=== PATIENT | female | born 1930 | race Caucasian/White ===

== ENCOUNTER 2018-05-13 07:51 | Inpatient (IN) | payer OTHER ==
[2018-05-13] VITALS (16 sets, daily range): BP systolic 118–136; BP diastolic 46–63
--- NOTE | ~2018-05-13 | EKG ---
[place], [place] ELECTROCARDIOGRAM REPORT NAME: ALAN MAYA UNIT #: [id number] ROOM: 506 DOCTOR: AMAURY DRAFT REPORT BIRTHDATE: [birth year] [facility] Test Date: 2018-05-13 Test Time: 08:21:46 Pat Name: ALAN MAYA Department: Room: 506 Gender: F High Risk Ob: Ines Argueta : 1930 Requested By: ERIBERTO GARCIA Order Number: [id number] Reading MD: Kalin Roblero MD Measurements Intervals [place] Rate: 104 P: 112 SC: 135 QRS: 55 QRSD: 90 T: 70 QT: 370 QTc: 487 Interpretive Statements Sinus tachycardia with irregular rate Consider left ventricular hypertrophy Borderline prolonged QT interval No previous ECG available for comparison Electronically Signed On 05-13-2018 15:57:18 PST by Kalin Roblero MD CM:EKGRPT:ELECTROCARDIOGRAM REPORT [id number] ERIBERTO POTTER DRAFT REPORT ERIBERTO GARCIA DO
--- NOTE | ~2018-05-13 | PR ---
[place], [place] PROGRESS NOTE [id number] UN[facility] #: [id number] ROOM: 506 DOCTOR: BRIAN HERNANDEZ MD BIRTHDATE: [birth year] DOS: 05/15/2018 CARDIOLOGY PROGRESS NOTE SUBJECTIVE: The patient was seen today, 05/15/2018, at her bedside with her son in attendance. She tells me that she is "getting along." She is breathing easily and denies any chest pain. We did do an echocardiogram yesterday, which showed normal left ventricular size, wall motion and systolic function with an ejection fraction of 65%. She had stage 2 diastolic dysfunction, mild aortic sclerosis, but no stenosis, mild mitral insufficiency and mild tricuspid insufficiency with mild pulmonary hypertension. PHYSICAL EXAMINATION: VITAL SIGNS: Today, her pulse is 79 and regular, blood pressure is 146/55. She is afebrile. NECK: Supple. She has no jugular distention. Carotids are full. LUNGS: Respirations are unlabored. Her chest is clear to auscultation and percussion. HEART: Has a regular rhythm with a soft S4 gallop, but no S3 or murmur. The PMI is not displaced. ABDOMEN: Soft and normally active. EXTREMITIES: Showed trace edema bilaterally. IMPRESSION: 1. Severe sepsis, probably of urinary origin. 2. Mild elevation in troponin without chest pain or diagnostic ST changes on her electrocardiogram. This most likely represents a type 2 myocardial injury. 3. Normal wall motion and systolic function on echocardiography. 4. Diastolic dysfunction. 5. Severe anemia on admission, most likely due to gastrointestinal blood loss. 6. Recent diagnosis of vaginal cancer with apparent urinary obstruction requiring bilateral nephrostomies. 7. Right-sided nephrostomy tube was not draining appropriately and had to be repositioned this admission. 8. Acute on chronic renal failure. PLAN: The patient appears to be comfortable and no further cardiac testing is indicated nor would it change her ultimate prognosis. We will remain available if needed, but at this point, we will sign off. I thank the hospitalist physicians for asking our advice regarding her care. [place], [place] PROGRESS NOTE NAME: ALAN MAYA [facility]ATED [facility]IN [facility] #: [id number] UNIT #: [id number] ROOM: 506 DOCTOR: BRIAN HERNANDEZ MD BIRTHDATE: [birth year] BRIAN HERNANDEZ MD CM:PNTRANS [id number] BRIAN HERNANDEZ MD 05/16/18 0023 interface
--- NOTE | ~2018-05-13 | CON ---
[place], [place] REPORT OF CONSULTATION NAME: ALAN MAYA [facility] #: [id number] UNIT #: [id number] ROOM: 506 DOCTOR: BRIAN HERNANDEZ MD BIRTHDATE: [birth year] DOS: 05/14/2018 CARDIOLOGY CONSULTATION REASON FOR CONSULTATION: The patient was seen today at her bedside today for evaluation of an elevated troponin level. HISTORY OF PRESENT ILLNESS: She is an 88-year-old woman who denies any previous history of heart disease. She did have a stroke in 03/2018. She was hospitalized at the [facility], where she was found to have bladder cancer, vaginal cancer and cervical cancer in 04/2017. She was transferred to the [facility], where I believe bilateral nephrostomy tubes were inserted. She was to have further workup including a PET scan and then an Oncology referral to determine further management strategies. About one week ago, she began having decreased oral intake with multiple episodes of dark diarrhea. She denied nausea, vomiting, fevers, chills, chest pain or dyspnea. She did, however, become extremely weak and therefore was brought to the Emergency Room. On arrival, her laboratory studies showed hemoglobin of 5.8 with a white count of 29,000, platelet count was 337,000. Electrolytes showed sodium of 124, BUN of 58 and a creatinine of 3.48. She was felt to have severe sepsis and severe blood loss anemia. She was treated with transfusions and her hemoglobin has increased to 10.0. Her white count is still severely elevated at 26,200. She states that she is feeling a little better and is no longer dyspneic, but still feels tired. She continues to deny any chest pain. Troponin levels since admission have been mildly elevated. The initial troponin was 0.048. Subsequent troponin levels were 0.098, 0.106 and 0.105. PAST MEDICAL HISTORY: Includes: 1. Essential hypertension. 2. History of stroke on 04/11/2018, details not currently available. 3. 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 Details of her current workup are not yet available to me. 4. History of bilateral nephrostomies. MEDICATIONS: Prior to admission; acetaminophen q. 4 hours p.r.n., amlodipine 10 mg daily, aspirin 81 mg daily, citalopram 20 mg daily, clopidogrel 75 mg daily, levothyroxine 75 mcg daily, metoprolol 12.5 mg b.i.d., omeprazole 20 mg t.i.d. at a.c. and simvastatin 80 mg at bedtime. ALLERGIES: The patient lists allergies to CIPROFLOXACIN. REVIEW OF SYSTEMS: The patient denies diplopia or loss of vision. She is generally weak, but denies focal weakness at this time. She does say that she has a hard time forming words and remembering words since her stroke, but still has clear speech. She denies nausea or vomiting. She denies fevers or chills. She denies hemoptysis or hematemesis. She has had dark diarrhea recently. She has no urine output and her urine is obtained via the nephrostomies. She denies chest pain or palpitations. She denies shortness of breath currently, although she was short of breath prior to admission. She denies skin rashes. She has [place], [place] REPORT OF CONSULTATION NAME: ALAN MAYA UNIT #: [id number] ROOM: [facility] DOCTOR: BRIAN HERNANDEZ MD BIRTHDATE: [birth year] had peripheral edema. She denies heat or cold intolerance, but states that she always feels cold. Remainder of the review of systems is negative except as noted above. FAMILY HISTORY: Both parents at age 78 from heart attacks. SOCIAL HISTORY: The patient has never smoked and does not consume alcohol. She does not use illegal drugs. PHYSICAL EXAMINATION: GENERAL: The patient is an elderly white female who appears to be awake, alert and oriented. VITAL SIGNS: Pulse is 86 and regular, blood pressure is 128/52. She had a fever of 100.6 overnight, but currently she is afebrile. She weighs 54.5 kg and has a body mass index of 23.5. HEENT: Normocephalic and atraumatic. Extraocular muscles are intact. Sclerae are clear. Pupils equal, round and react to light. The oral mucosa is moist. Tongue is midline. NECK: Her neck is supple. She has no jugular distention. Carotids are full. There are no bruits. She has no neck or supraclavicular masses and no thyromegaly. LUNGS: Respirations are unlabored. Her chest is clear to auscultation and percussion. She has no chest wall tenderness. CARDIOVASCULAR: Her heart has a regular rhythm with a soft S4 gallop, but no S3 or murmur. The PMI is not displaced. There is no precordial heave, lift or thrill. ABDOMEN: Soft and normally active. The patient does have bilateral nephrostomy tubes in place. EXTREMITIES: Showed 1+ edema bilaterally. Peripheral pulses are palpable in the feet. LABORATORY DATA: The electrocardiogram showed sinus rhythm with frequent PACs and multifocal atrial tachycardia. There is nonspecific ST and T-wave change present, but no acute ST elevations or depressions. Chest x-ray shows a normal cardiac silhouette without infiltrates. A CT of the abdomen shows that left-sided nephrostomy tube is in proper position and drains the kidney appropriately. The right-sided nephrostomy tube appears to be curled within the peripheral portion of the inferior calyx or possibly external to the calyx, this is associated with [id number] right-sided hydronephrosis. Hemoglobin is 10.0, white count 26,200, platelet count 327,000. Sodium 126, potassium 4.1, chloride 95, CO2 of 19, BUN 61, creatinine 3.20. Troponins are as noted above. The most recent troponin was 0.105. IMPRESSIONS: 1. Severe sepsis, probably of urinary origin. 2. Mild elevation in troponin without chest pain or diagnostic ST changes on electrocardiogram. Most likely, this represents a type 2 myocardial injury (demand ischemia). 3. Severe anemia on admission, most likely due to gastrointestinal blood [place], [place] REPORT OF CONSULTATION NAME: ALAN MAYA UNIT #: [id number] ROOM: 506 DOCTOR: BRIAN HERNANDEZ MD BIRTHDATE: [birth year] losses. 4. Recent diagnosis of cervical and vaginal cancer with apparent urinary obstruction requiring bilateral nephrostomies. 5. Right-sided nephrostomy tube likely is not draining appropriately per x-ray of the abdomen. 6. Acute on chronic renal failure. PLAN: From a Cardiac standpoint, we will be getting an echocardiogram to assess left ventricular function. I think it would be very important to obtain records from [facility] and especially from [facility] to determine what the patient's options were when they saw her. The patient is very committed to the idea that she be comfort care only. She asked that we convey to her family that those are her stated and tightly held wishes and that she did not want to have any invasive therapies. From a Cardiac standpoint, she truly is not a candidate for any advanced cardiac diagnostic or therapeutic measures given her severe anemia, apparent blood loss, and progressive cancer. I would recommend that we keep her hemoglobin greater than 9 and further recommendations may occur after I see her echocardiogram, but likely we will simply treat her conservatively and supportively. I thank the hospitalist physicians for asking our advice regarding her care. BRIAN HENRANDEZ MD CM:CONSTR:REPORT OF CONSULTATION [id number] 05/14/18 1014 interface
[~2018-05-13 07:51] MED LIST: CITALOPRAM20 MG PO; ENALAPRIL MALE2.5 MG PO; LOPRESSOR25 MG PO; LOVASTATIN20 MG PO; NORVASC10 MG PO; SYNTHROID,LEVO75 MCG PO; ZANTAC150 MG PO
[2018-05-13 08:23] LABS: MEAN CELL VOLUME 83.5 fl (81.0-99.0); MEAN CORPUSCULAR HGB CONC 34.7 g/dl (33.0-37.0); MEAN PLATELET VOLUME 8.8 fl (9.6-12.3); PLATELET COUNT AUTOMATED 337 10*3/uL (130-400); RED CELL DISTRI WIDTH 15.5 % (0-14.5)
[2018-05-13 08:37] LABS: CREATININE 3.48 mg/dL (0.55-1.02); POTASSIUM 4.2 mmol/L (3.5-5.1); TOTAL PROTEIN 6.7 gm/dL (6.4-8.2)
[2018-05-13 08:41] LABS: TROPONIN I 0.048 ng/ml (<0.045)
[2018-05-13 08:47] LABS: PLATELET SUFFICIENCY NORMAL (NORMAL); POLYCHROMASIA SLIGHT; TOTAL CELLS COUNTED 100 #CELLS
[2018-05-13 08:48] LABS: BURR CELLS FEW
[2018-05-13 08:50] LABS: HEMATOCRIT 16.7 % (37.0-47.0); HEMOGLOBIN 5.8 g/dl (12.0-16.0)
[2018-05-13 09:00] LABS: BILIRUBIN NEGATIVE (NEGATIVE); BLOOD 3+ (NEGATIVE); CLARITY CLOUDY (CLEAR); COLOR YELLOW (YELLOW); GLUCOSE NEGATIVE (NEGATIVE); KETONE NEGATIVE (NEGATIVE); LEUKO ESTERASE 2+ (NEGATIVE); NITRITE NEGATIVE (NEGATIVE); PH 5.5 (5.0-9.0); SPECIFIC GRAVITY <= 1.005 (1.005-1.030); UROBILINOGEN 0.2 E.U./dl (0.2-1.0)
[2018-05-13 09:25] LABS: BACTERIA 3+; MUCOUS 1+; WBC TNTC wbc/hpf (0-5)
--- NOTE | 2018-05-13 11:40 | NUR ---
A 88, admitted to 5E, under the services of KAMERON Crawford DO with a diagnosis of UTI, ANEMIA, RENAL INSUFFICIENCY, HYPONATREMIA. Chief complaint is WEAKNESS. Patient arrived via stretcher from ER. Initial assessment completed. Vital signs taken and recorded. KAMERON CRAWFORD DO notified of admission to the unit. Orders received. See assessment for past medical history, medications and allergies. Patient and/or family oriented to unit. [address] visitation policy reviewed. Clothing/patient valuable form completed. MOHAN CEJA
--- NOTE | 2018-05-13 12:44 | NUR ---
SPOKE TO DR BRADFORD REGARDING FLUID BOLUS WHILE RECEIVING BLOOD. PER DR BRADFORD IT IS OK TO ASMINISTER AND HE WILL PUT IN ORDER FOR IV LASIX
--- NOTE | 2018-05-13 13:19 | NUR ---
DR. BRADFORD WAS NOTIFIED OF CRITICAL LAB OF TROPONIN LEVEL OF 0.098.
--- NOTE | 2018-05-13 15:50 | NUR ---
SPOKE TO DR BRADFORD AND INFORMED HIM OF PTS CRITICAL TROPONIN. ALSO INFORMED HIM THAT PTS BLOOD TRANSFUSION IS COMPLETE. ORDER FOR H/H [id number] RECEIVED.
[2018-05-13] MEDS ORDERED: CLOPIDOGREL75 MG PO (17:31)
[2018-05-13] MEDS ORDERED: ASPIRIN ADULT L81 M1 PO (17:31)
[2018-05-13] MEDS ORDERED: SIMVASTATIN40 MG PO (17:32)
[2018-05-13] MEDS ORDERED: ACETAMINOPHEN325 M3 PO (17:34)
[2018-05-13] MEDS ORDERED: OMEPRAZOLE D/R20 MG PO (17:39)
--- NOTE | 2018-05-13 17:42 | NUR ---
CALLED PTS DAUGHTER TO VERIFY HOME MEDICATIONS. MED LIST NOW UP TO DATE. DR BRADFORD NOTIFIED
[2018-05-13 18:18] LABS: HEMOGLOBIN 7.7 g/dl (12.0-16.0)
--- NOTE | 2018-05-13 18:27 | NUR ---
CALLED ANSWERING SERVICE REGARDING NEW PT CONSULT FOR DR HERNANDEZ. DR BONILLA TAKING CALL. LEFT MESSAGE. WAITING CANDLEMAKER BACK
--- NOTE | 2018-05-13 18:38 | NUR ---
DR BONILLA CALLED REGARDING INFORMATION FOR NEW PT CONSULT. HE STATED HE WILL SEE PT IN THE MORNING. NO NEW ORDERS
--- NOTE | 2018-05-13 19:42 | NUR ---
CALLED TO FLOOR TO INSPECT NEPHROSTOMY TUBE THAT IS LEAKING. STATES HE WILL SEE PATIENT.
--- NOTE | 2018-05-13 19:46 | NUR ---
HERE TO SEE PATIENT. INSTRUCTED TO FLUSH TUBING OF NEPHROSTOMY BAG TO ENSURE THERE IS NO SEDIMENT BLOCKING/PREVENTING IT FROM DRAINING. DRESSING TO NEPHROSTOMY TUBE CHANGED. TUBING TAPED UP TO ENSURE KINKING. WILL MONITOR. SECOND UNIT OF BLOOD INFUSING.
--- NOTE | 2018-05-13 21:35 | NUR ---
NOTIFIED OF R NEPHROSTOMY TUBE STILL LEAKING AFTER FLUSHING BAG TUBING AND REDRESSING THE SITE. NEW ORDERS TO FOLLOW FOR CT ABDOMEN/PELVIS WITHOUT CONTRAST.
--- NOTE | 2018-05-13 21:55 | NUR ---
PATIENT CLEANED UP. DRESSINGS TO BILATERAL NEPHROSTOMY TUBES CHANGED. RIGHT TUBE DRESSING IS SOILED AGAIN. CT CALLED TO CLARIFY DR'S WANTING ORAL CONTRAST. PER , NO ORAL CONTRAST NEEDED.
--- NOTE | 2018-05-13 22:28 | NUR ---
PATIENT RETURNED TO FLOOR FROM CT SCAN.
[2018-05-13 23:57] LABS: HEMATOCRIT 24.8 % (37.0-47.0); HEMOGLOBIN 8.8 g/dl (12.0-16.0)
[2018-05-14] VITALS (12 sets, daily range): BP systolic 105–141; BP diastolic 41–67
--- NOTE | 2018-05-14 02:31 | NUR ---
NOTIFIED OF CT RESULTS. CAME TO FLOOR TO SEE PATIENT TO DISCUSS WISHES ON TRANSFER TO ANOTHER FACILITY TO REPLACE R NEPHROSTOMY TUBE. PATIENT STATES SHE WANTS TO TALK TO HER DAUGHTER IN THE MORNING. OFFERED TO MAKE A PHONE CALL TONIGHT TO TALK TO DAUGHTER. PATIENT STATES SHE DOES NOT WANT TO WAKE HER DAUGHTER. WILL MAKE PHONE CALL TO DAUGHTER.
--- NOTE | 2018-05-14 04:22 | NUR ---
CALLED REGARDING PATIENT'S HEMORRHOIDS AND HER REQUEST FOR CREAM. NEW ORDERS TO FOLLOW.
--- NOTE | 2018-05-14 05:15 | NUR ---
PATIENT REQUESTING TO BE LEFT TO SLEEP AT THIS TIME. PATIENT TOOK PILLS PER ORDER, BUT DOES NOT WANT DRESSING TO R NEPHROSTOMY TUBE CHANGED AT THIS TIME.
--- NOTE | 2018-05-14 06:32 | NUR ---
DAUGHTER DERRICK CALLED AT THIS TIME AND UPDATED ON PLAN OF CARE. PATIENT STATES SHE WANTS TO STAY HERE AND DOES NOT WANT TO BE TRANSFERRED TO [facility] OR ANY OTHER HOSPITAL. STATES SHE WANTS TO BE A DNR AND TO STAY HERE. DAUGHTER DOES WANT PATIENT TO HAVE THIS TAKEN CARE OF. STATES SHE WILL BE IN TODAY AND REQUESTING A DOCTOR TALK TO BOTH OF THEM REGARDING OPTIONS. PATIENT AND DAUGHTER SPOKE AND IN AGREEANCE ON WAITING TO DECIDE UNTIL OPTIONS ARE DISCUSSED.
[2018-05-14 06:40] LABS: MEAN CELL VOLUME 83.6 fl (81.0-99.0); MEAN CORPUSCULAR HGB 29.9 pg (27.0-31.0); MEAN CORPUSCULAR HGB CONC 35.7 g/dl (33.0-37.0); MEAN PLATELET VOLUME 9.2 fl (9.6-12.3); PLATELET COUNT AUTOMATED 327 10*3/uL (130-400); RED BLOOD COUNT 3.35 10*6/uL (4.10-5.10); RED CELL DISTRI WIDTH 15.3 % (0-14.5); WHITE BLOOD COUNT 26.2 10*3/uL (4.8-10.8)
[2018-05-14 06:58] LABS: CREATININE 3.2 mg/dL (0.55-1.02); PHOSPHOROUS 4.4 mg/dL (2.5-4.9); POTASSIUM 4.1 mmol/L (3.5-5.1)
[2018-05-14 07:05] LABS: PLATELET SUFFICIENCY NORMAL (NORMAL); SCHISTOCYTES FEW; TOTAL CELLS COUNTED 100 #CELLS
[2018-05-14 07:06] LABS: THYROID STIM HORMONE (HS) 2.85 uIU/ml (0.358-4.75)
--- NOTE | 2018-05-14 08:00 | NUR ---
PT'S DAUGHTER HERE AND WOULD LIKE TO SPEAK WITH PT'S DOCTOR R/T POSSIBLE TRANSFER DUE TO PT'S RIGHT NEPHROSTOMY TUBE NEEDING REPLACED. MED. STUDENT IN WITH PT AND I REQUESTED IF THE MED. STUDENT COULD PLEASE NOTIFY DR REBOLLEDO.
--- NOTE | 2018-05-14 10:58 | NUR ---
PT TO HAVE NEPHROSTOMY TUBE REPLACED BY INTERVENTIONAL RADIOLOGIST TODAY. PT AND PT'S FAMILY NOTIFIED. ALSO NOTIFIED THEM OF NPO STATUS UNTIL PROCEDURE COMPLETED. LAYA, INSPECTOR RECEIVING, HERE TO SPEAK WITH PT R/T HOSPICE.
--- NOTE | 2018-05-14 11:18 | NUR ---
In to see patient, family at bedside. Family with questions regarding hospice, usp and DNR codes. Patient does not have medicaid so she cannot go to a usp facility for hospice; family would like patient to have PT and OT and be referred to [facility] for usp at this time.
--- NOTE | 2018-05-14 11:42 | NUR ---
Associate Data Scientist in to talk to patient. Patient states lives at HOME with ALONE. There are 3 steps in the home. Physician: CARMELA Pharmacy: [facility] health services: [facility] Patient's level of ADLs: MODERATE ASSIST Patient has working utilities: YES DME: NONE Follow-up physician's appointment after d/c: WILL BE MADE BY HOSPITALIST NURSE DIRECTOR Does patient want to access PORTAL?: NO Discharge plan PT LIVES ALONE AT HOME WITH FAMILY LIVING NEARBY AND STAYING WITH PT. PT ALSO HAS OV. FAMILY IS THINKING HOSPICE VS SNF PLACEMENT. [facility] HOSP[facility] MEETING WITH FAMILY TODAY AT 1 PM. WILL CONTINUE TO FOLLOW.. DANIA MURRAY
--- NOTE | 2018-05-14 11:47 | NUR ---
PT TO SURGERY VIA BED.
--- NOTE | 2018-05-14 12:18 | NUR ---
Contacted [facility] and faxed referral, will require PT/OT evals when patient is appropriate to participate and a precert.
--- NOTE | 2018-05-14 14:02 | NUR ---
PT C/O PAIN "ALL OVER" PT STATES I AM IN MORE PAIN NOW THAN I HAVE EVER BEEN IN." WHEN PT INFORMED OF ROYCE SRIVASTAVA ORDERED SHE STATED THAT ROYCE WILL NOT TOUCH THIS. I UPDATED DR BRADFORD AND HE STATED HE WILL ORDER SOMETHING FOR HER. PT'S FAMILY AT BEDSIDE.
--- NOTE | 2018-05-14 14:20 | NUR ---
MEDICATED PT PER PRN ORDER WITH MORPHINE FOR C/O PAIN "ALL OVER" THAT RATES 10/10 ON PAIN SCALE.
--- NOTE | 2018-05-14 14:28 | NUR ---
PT C/O NAUSEA. MEDICATED PT PER PRN ORDER WITH ZOFRAN.
--- NOTE | 2018-05-14 14:29 | NUR ---
PT REFUSING TO TURN SO THAT RN MAY CHECK NEPHROSTOMY SITE.
--- NOTE | 2018-05-14 14:51 | NUR ---
Kat from [facility] in to see patient and family. she answered all of their questions regarding hospice at a skilled facility VS hospice at home. Patient and daughter still in agreement to [facility] until they can apply for medcaid. Will follow.
--- NOTE | 2018-05-14 15:00 | NUR ---
PT STATES NO RELIEF OF PAIN WITH EARLIER MORPHINE. WILL NOTIFY DR BRADFORD.
--- NOTE | 2018-05-14 15:08 | NUR ---
DR BRADFORD IN TO SEE PT. 2MG IV MORPHINE GIVEN PER ORDER.
--- NOTE | 2018-05-14 15:43 | NUR ---
Hospice consult this date. Sana Guaman OTR/l
--- NOTE | 2018-05-14 16:38 | NUR ---
Hospice consult entered. Plan at this time to follow up at later date. Eun Mancilla, PT
--- NOTE | 2018-05-14 17:40 | NUR ---
PATIENT IS STATING SHE IS EXPERIENCING BAQCK PAIN AT SURGICAL SITE. PRN DILAUDID ADMINISTERED. PATIENT IS REFUSING TURNING AND CHANGING UNTIL PAIN MEDICATIONS ARE EFFECTIVE.
--- NOTE | 2018-05-14 19:21 | NUR ---
ASSUMED CARE OF PATIENT AT THIS TIME. PT IS SLEEPING IN BED, EASILY AROUSABLE. PT STATES EARLIER DILAUDID HELPED TO RELIEVE PAIN. [place] JAMIL AT BEDSIDE. WILL MONITOR. PATIENT DOES NOT WANT TO TURN AT THIS TIME FOR RN TO CHECK SITE. PT REQUESTING TO BE LEFT TO REST. WILL RESPECT PATIENT'S WISHES AND CONTINUE TO MONITOR. CALL LIGHT IN REACH.
--- NOTE | 2018-05-14 20:58 | NUR ---
PATIENT CLEANED UP/NEW BRIEF APPLIED AT THIS TIME. SITE OF R NEPHROSTOMY TUBE CHECKED. NO S/S OF BLEEDING/DRAINAGE NOTED. 300 CCs OF BLOOD-TINGED URINE NOTED IN NEPHROSTOMY BAG. PATIENT IS C/O PAIN IN R SIDE 11/30. PO NORCO ADMINSITERED PER ORDER. BED LEFT LOCKED IN LOW POSITION, BED ALARM INTACT. CALL LIGHT LEFT IN REACH.
[2018-05-15] VITALS: BP 124/50
--- NOTE | 2018-05-15 00:34 | NUR ---
PATIENT RESTING IN BED. STATES EARLIER MEDICATION WAS EFFECTIVE AND DENIES PAIN OR NEED OF ANY ADDITIONAL MEDICATION AT THIS TIME. WILL MONITOR. CALL LIGHT LEFT IN REACH.
--- NOTE | 2018-05-15 05:41 | NUR ---
PO NORCO ADMINISTERED PER PRN ORDER FOR C/O PAIN AROUND R NEPHROSTOMY SITE RATED 6/10. WILL MONITOR. CALL LIGHT LEFT IN REACH.
--- NOTE | 2018-05-15 06:36 | NUR ---
PATIENT STATES EARLIER MEDICATION EFFECTIVE. WILL CONTINUE TO MONITOR. CALL LIGHT LEFT IN REACH.
[2018-05-15 06:44] LABS: HEMATOCRIT 29.7 % (37.0-47.0); HEMOGLOBIN 9.9 g/dl (12.0-16.0); MEAN CELL VOLUME 85.8 fl (81.0-99.0); MEAN CORPUSCULAR HGB 28.6 pg (27.0-31.0); MEAN CORPUSCULAR HGB CONC 33.3 g/dl (33.0-37.0); MEAN PLATELET VOLUME 9.4 fl (9.6-12.3); PLATELET COUNT AUTOMATED 384 10*3/uL (130-400); RED BLOOD COUNT 3.46 10*6/uL (4.10-5.10); RED CELL DISTRI WIDTH 15.9 % (0-14.5)
[2018-05-15 07:02] LABS: CREATININE 3.7 mg/dL (0.55-1.02)
[2018-05-15 07:11] LABS: BURR CELLS FEW; OVALOCYTES FEW; PLATELET SUFFICIENCY NORMAL (NORMAL); TOTAL CELLS COUNTED 100 #CELLS
[2018-05-15 07:12] LABS: SCHISTOCYTES FEW
[2018-05-15 08:00] VITALS: BP 108/48
--- NOTE | 2018-05-15 08:37 | NUR ---
Occupational Therapy evaluation completed on 5 with full eval to follow. Precautions include fall risk, nephostomy tubes, debility. Patient is moderate complexity level 53063 via chart review,testing and evaluation. Recommend OT per POC and SNF to enable max level of safety in ADLs. Thank you for this referral. Pennie Guaman OTR/L
--- NOTE | 2018-05-15 09:38 | NUR ---
Initial physical therapy evaluation completed this date, please refer to evaluation form for details. Recommended SNF upon discharge. PILY ZelayaT
--- NOTE | 2018-05-15 09:45 | NUR ---
PATIENT COMPLAINING OF A SORE THROAT. DR. BRADFORD WAS NOTIFIED.
--- NOTE | 2018-05-15 11:00 | NUR ---
PATIENT COMPLAINING OF SORE THROAT. CEPACOL WAS GIVEN AT THIS TIME.
--- NOTE | 2018-05-15 11:45 | NUR ---
Information for referral faxed to [facility] for snf placement, patient will require precert, however [facility] cannot accept this patient on the IV Meropenum. Waiting to see if IV ATB can be changed.
[2018-05-15 12:00] VITALS: BP 146/55
--- NOTE | 2018-05-15 12:21 | NUR ---
MORNING MEDS NOT GIVEN. PATIENT HAS NOT EATEN IN DAYS AND HAS BEEN EXPERIENCING NAUSEA. PATIENT STATES THEY WILL EAT TODAY, HOLDING MEDS UNTIL PATIENT HAS SOMETHING ON HER STOMACH. BLOOD PRESSURE IS STABLE AT THIS TIME.
--- NOTE | 2018-05-15 12:59 | NUR ---
Notified [facility] patient will not be going on IV Meropenum, she will be switched to another P.O. ATB. Asked [facility] to start precert, waiting for auth.
[2018-05-15 16:00] VITALS: BP 152/62
--- NOTE | 2018-05-15 17:42 | NUR ---
client scored a 1 on suicide risk assessment, no intervention required.
[2018-05-15 20:00] VITALS: BP 120/51
--- NOTE | 2018-05-15 21:20 | NUR ---
PATIENT MEDICATED WITH TYLENOL SUSPENSION AND BENEDRYL 25 MG LIQUID PER ONE TIME ORDER FOR C/O DISCOMFORT AND INABILITY TO SLEEP. STATED HER THROAT IS SORE AND SHE IS UNABLE TO TAKE PILLS AT PRESENT TIME. SEE EMAR. REINFORCED USE OF CALL LIGHT
--- NOTE | 2018-05-15 23:00 | NUR ---
PATIENT STATED MEDICATION EFFECTIVE FOR PAIN.
--- NOTE | 2018-05-15 23:19 | NUR ---
24 HR chart check completed.
[2018-05-16] VITALS: BP 128/65
--- NOTE | 2018-05-16 06:02 | NUR ---
MORPHINE 2 MG IV GIVEN SLOWLY PER PRN ORDER AND PATIENT REQUEST FOR C/O BACK PAIN AND NOT FEELING WELL. SEE EMAR. REINFORCED USE OF CALL LIGHT.
[2018-05-16 06:46] LABS: HEMOGLOBIN 8.6 g/dl (12.0-16.0); MEAN CELL VOLUME 86.7 fl (81.0-99.0); MEAN CORPUSCULAR HGB 28.7 pg (27.0-31.0); MEAN CORPUSCULAR HGB CONC 33.1 g/dl (33.0-37.0); MEAN PLATELET VOLUME 9.4 fl (9.6-12.3); PLATELET COUNT AUTOMATED 316 10*3/uL (130-400); RED CELL DISTRI WIDTH 15.9 % (0-14.5); WHITE BLOOD COUNT 25.9 10*3/uL (4.8-10.8)
--- NOTE | 2018-05-16 07:01 | NUR ---
MEDICATION GIVEN EARLIER WAS EFFECTIVE FOR PAIN.
[2018-05-16 07:18] LABS: CREATININE 4.28 mg/dL (0.55-1.02); POTASSIUM 4.7 mmol/L (3.5-5.1)
--- NOTE | 2018-05-16 07:30 | NUR ---
Patient resting quietly with no c/o discomfort. Respirations easy and regular. Vital signs stable. No overt distress. CHRISTINA MARIE
--- NOTE | 2018-05-16 07:32 | NUR ---
Patient referred to [facility]. When [facility] started precert they were told by [employer] the insurance company has no record of patient even being in the hospital at this time. Notified mental health case manager Keshia Wilson. Waiting for precert.
[2018-05-16 07:46] LABS: PLATELET SUFFICIENCY NORMAL (NORMAL); TOTAL CELLS COUNTED 100 #CELLS
[2018-05-16 07:47] LABS: BURR CELLS FEW; OVALOCYTES FEW; SCHISTOCYTES FEW
[2018-05-16 08:00] VITALS: BP 130/50
--- NOTE | 2018-05-16 08:15 | NUR ---
24 HR chart check completed.
--- NOTE | 2018-05-16 09:10 | NUR ---
Patient received auth for [facility], she can go if medically stable for discharge.
--- NOTE | 2018-05-16 09:45 | NUR ---
OT NOTE Attempted to see pt this A.M for OT session and upon arrival pt was supine in bed with reports of stomach pain from surgery yesterday (05/15). Pt wanting to rest at this time. Will check back at a later time/date. KAT Fall/Darby
--- NOTE | 2018-05-16 10:05 | NUR ---
PHYSICAL THERAPY Patient seen this am 1:1 for therapy visit and was supine in bed upon therapist arrival. Patient presents with increased lower abdominal pain secondary to recent Surgery yesterday. Patient stated she wasn't feeling real "perky" this morning and only agreed to supine B LE therex, all planes, 2 x 10 to improve LE strength. Patient reports no change in pain c/o and remained supine in bed with call light, tray table, and bed alarm as her Son Bao arrived to visit. Will continue per POC as tolerated, total treatment time 16 minutes. Gabino Mcguire, FILM TOUCH UP INSPECTOR
--- NOTE | 2018-05-16 10:57 | NUR ---
RECIEVED AUTH, PT CAN TO TO [facility] WHEN MEDICALLY STABLE.
[2018-05-16] MEDS ORDERED: PROTONIX40 MG PO (11:27)
[2018-05-16] MEDS ORDERED: LOPRESSOR25 MG PO (11:27)
[2018-05-16] MEDS ORDERED: PREPARATION H CR1 OZ R (11:27)
--- NOTE | 2018-05-16 11:46 | NUR ---
Patient discharged to [facility], transportation scheduled for 2 PM with [place]. PR, nursing/forest fire warden and daughter alicia notified.
[2018-05-16 12:00] VITALS: BP 128/53
--- NOTE | 2018-05-16 15:20 | NUR ---
REPORT CALLED TO [facility], QUESTIONS ANSWERED.
--- NOTE | 2018-05-20 08:00 | NUR ---
PHYSICAL THERAPY CO-SIGN I approve of the Phyical Therapy notes written above. RIA HENDERSON PT
== END 2018-05-16 14:04 | disposition other institution (70) | DRG 871 ==
LOC: ED 07:51 → 5E 10:06 → EDHOLD 10:06 → 5E 11:05
PROVIDERS: Emergency Medicine; Family Medicine; Student in an Organized Health Care Education/Training Program; ADMIT Internal Medicine
PROC: 30233N1 Transfusion of Nonautologous Red Blood Cells into Peripheral Vein, Percutaneous Approach (ICD-10-PCS; principal; 2018-05-13)
PROC: 0T9330Z Drainage of Right Kidney Pelvis with Drainage Device, Percutaneous Approach (ICD-10-PCS; 2018-05-14)
DX: A41.9 Sepsis, unspecified organism (principal); E43 Unspecified severe protein-calorie malnutrition; N17.0 Acute kidney failure with tubular necrosis; I21.A1 Myocardial infarction type 2; N39.0 Urinary tract infection, site not specified; E87.1 Hypo-osmolality and hyponatremia; T83.022A Displacement of nephrostomy catheter, initial encounter; R65.20 Severe sepsis without septic shock; C52 Malignant neoplasm of vagina; D64.9 Anemia, unspecified; E87.8 Other disorders of electrolyte and fluid balance, not elsewhere classified; C55 Malignant neoplasm of uterus, part unspecified; C67.9 Malignant neoplasm of bladder, unspecified; I70.0 Atherosclerosis of aorta; I08.1 Rheumatic disorders of both mitral and tricuspid valves; I27.20 Pulmonary hypertension, unspecified; E03.9 Hypothyroidism, unspecified; C53.9 Malignant neoplasm of cervix uteri, unspecified; I10 Essential (primary) hypertension; B96.5 Pseudomonas (aeruginosa) (mallei) (pseudomallei) as the cause of diseases classified elsewhere; F32.9 Major depressive disorder, single episode, unspecified; B95.2 Enterococcus as the cause of diseases classified elsewhere; Z66 Do not resuscitate; Z51.5 Encounter for palliative care; E55.9 Vitamin D deficiency, unspecified; Y83.8 Other surgical procedures as the cause of abnormal reaction of the patient, or of later complication, without mention of misadventure at the time of the procedure; Y92.89 Other specified places as the place of occurrence of the external cause; Z88.1 Allergy status to other antibiotic agents; Z82.49 Family history of ischemic heart disease and other diseases of the circulatory system; Z80.9 Family history of malignant neoplasm, unspecified; Z86.73 Personal history of transient ischemic attack (TIA), and cerebral infarction without residual deficits; Z79.82 Long term (current) use of aspirin; Z79.899 Other long term (current) drug therapy; Z79.02 Long term (current) use of antithrombotics/antiplatelets; Z68.23 Body mass index [BMI] 23.0-23.9, adult